=== PATIENT | male | born 1990 | race Caucasian/White ===

== ENCOUNTER 2016-11-16 12:45 | Emergency (ER) | payer BC ==
[~2016-11-16] VITALS: Ht 185.4 cm; Wt 90.0 kg
[2016-11-16 12:47] VITALS: BP 130/74; PULSE 72; RESP 16; TEMP 97.3; O2SAT 97
[2016-11-16] MEDS ORDERED: ROBA750T PO (15:24)
[2016-11-16] MEDS ORDERED: DICL75TA PO (15:24)
--- NOTE | 2016-11-16 15:24 | PD ---
HPI Chief Complaint: Back/ Neck Pain or Injury Time Seen by Provider: 15:24 Travel History International Travel<30 days: No Contact w/Intl Traveler<30days: No Traveled to known affect area: No History of Present Illness HPI Patient is a 26-year-old male presenting with right upper mid back and neck pain. He states at 9:30 AM he was lifting a [address] on his shoulder while moving and felt a pulling sensation. Pain is tight. The pain does not radiate. It is mostly between the right shoulder blade and the vertebra and around the base of the neck on the right. It is worse with movement. Denies any chest pain or shortness of breath. He denies any trauma or injury to the site. He denies any muscle weakness or paresthesias in his upper extremities. No attempts at palliation. [facility] Social History Tobacco Use: No Allergies-Medications (Allergen,Severity, Reaction): Coded Allergies: No Known Allergies (Unverified , 11/16/16) Reported Meds & Prescriptions Reported Meds & Active Scripts Active Robaxin (Methocarbamol) 750 Mg Tab 750 Mg PO QID PRN 2 tabs QID for 2 days, then 1 tab QID thereafter Diclofenac Sodium DR (Diclofenac Sodium) 75 Mg Tabdr 75 Mg PO BID Review of Systems General / Constitutional: No: Fever Cardiovascular: No: Chest Pain or Discomfort Respiratory: No: Shortness of Breath Musculoskeletal: Positive: Other (see HPI) Neurologic: No: Weakness, Focal Abnormalities, Paresthesia, Sensory Disturbance Physical Exam Narrative GENERAL: Well-developed and well-nourished adult male in no acute distress. SKIN: Warm and dry. Good turgor without tenting. HEAD: Normocephalic and atraumatic. EYES: PERRL bilaterally, 5mm. EOMI bilaterally. No injection or icterus present. No proptosis. Lids without edema or erythema. NECK: Supple, no midline tenderness, crepitus or step-offs. Slightly reduced range of motion secondary to discomfort. Pain with palpation of the right paraspinous musculature. Trachea midline, no JVD. No cervical or facial lymphadenopathy. CARDIOVASCULAR: Regular rate and rhythm without murmurs, rubs, clicks or gallops. Radial pulses 2+ bilaterally. RESPIRATORY: Clear to auscultation bilaterally with symmetrical rise and fall, no distress or use of accessory muscles. MUSCULOSKELETAL: Patient has tenderness with palpation over the right rhomboid and mid lower trapezius musculature. No thoracic or lumbar midline tenderness, crepitus or step-offs. No gait disturbances. Patient freely moving all four extremities spontaneously. Extremities without clubbing, cyanosis, or edema. No obvious deformities. NEUROLOGIC: CN II-XII grossly intact. Awake and alert. Strength 5/5 bilateral shoulder flexion, shoulder extension, elbow flexion, elbow extension. Sensation intact and strength 5/5 over radial, median, and ulnar nerve distributions bilaterally.Normal speech. PSYCHIATRIC: Appropriate mood and affect; insight and judgment normal. Data Data Last Documented VS Vital Signs Date Time Temp Pulse Resp B/P Pulse Ox O2 Delivery O2 Flow Rate FiO2 11/16/16 12:47 97.3 72 16 130/74 97 Room Air Orders Ibuprofen (Motrin) (11/16/16 15:30) Cyclobenzaprine (Flexeril) (11/16/16 15:30) MDM Medical Decision Making Medical Screen Exam Complete: Yes Emergency Medical Condition: Yes Differential Diagnosis Trapezial strain versus rhomboid strain versus muscle spasm Narrative Course Patient's 26-year-old male whose history and physical is consistent with a trapezial and likely rhomboid strain secondary to overuse while lifting boxes and moving. He has no "red flag "symptoms and is neurovascularly intact. No trauma or bony tenderness. Patient given ibuprofen and Flexeril here. A prescription for diclofenac and Robaxin as well as homecare measures.See discharge paperwork for further instructions. The plan was discussed with the patient who acknowledged their understanding and agreement. Reinforced the follow-up with primary care is critically important. Patient instructed on emergent conditions that should prompt return to ED. Diagnosis Primary Impression: Muscle spasm Patient Instructions: General Instructions, Muscle Spasm (ED), Thoracic Back Strain (ED) Additional Instructions: Rest for 24 hours, then gradually resume normal activity Avoid maneuvers or positions that aggravate the pain Avoid twisting/bending or lifting heavy items Take medications as prescribed Warm, moist heat applied to painful areas hourly as needed Try to massage and stretch affected muscles after applying heat to speed recovery Follow-up with PCP in 1-2 days Return to ED for any acute worsening of symptoms Med/Other Pt SpecificInfo: Prescription(s) given Scripts Methocarbamol (Robaxin)750 Mg [id number] Mg PO QID PRN (MUSCLE SPASM) #40 TAB 2 tabs QID for 2 days, then 1 tab QID thereafter Prov:Raoul Cleveland MD 11/16/[address] 75 Mg Tabdr75 Mg PO BID #14 TAB Prov:Raoul Cleveland MD 11/16/16 Disposition: 01 DISCHARGE HOME Condition: Stable Jorge Dickens III Nov 16, 2016 15:24
[2016-11-16] MEDS ORDERED: IBUPROFEN 800 MG TAB PO ONE (15:30)
[2016-11-16] MEDS ORDERED: CYCLOBENZAPRINE HCL 10 MG TAB PO ONE (15:30)
== END 2016-11-16 16:07 | disposition home or self-care (01) ==
LOC: NEPB 12:45
DX: M62.838 Other muscle spasm (principal); X50.0XXA Overexertion from strenuous movement or load, initial encounter; X50.9XXA Other and unspecified overexertion or strenuous movements or postures, initial encounter; Y93.E6 Activity, residential relocation; Y92.89 Other specified places as the place of occurrence of the external cause; Y99.8 Other external cause status
CPT/HCPCS: 99283